=== PATIENT | male | born 1990 | race African-American/Black ===

== ENCOUNTER 2017-01-11 14:58 | Emergency (ER) | payer OTHER ==
[~2017-01-11] VITALS: Ht 175.3 cm; Wt 63.6 kg
[~2017-01-11 14:58] MED LIST: BENADRYL; NO HOME MEDICATIONS
[2017-01-11 15:01] VITALS: BP 133/84; PULSE 71; TEMP 98.1
[2017-01-11] MEDS ORDERED: FLONASEALLERGY NS (15:25)
[2017-01-11] MEDS ORDERED: CLARITIN-D 10 M1 T24 PO (15:25)
== END 2017-01-11 15:35 | disposition home or self-care (01) ==
LOC: COL.ER 14:58
DX: J06.9 Acute upper respiratory infection, unspecified (principal); F17.210 Nicotine dependence, cigarettes, uncomplicated

== ENCOUNTER 2018-09-16 11:32 | Emergency (ER) | payer OTHER ==
[~2018-09-16] VITALS: Ht 175.3 cm; Wt 63.2 kg
[~2018-09-16 11:32] MED LIST changes: +CLARITIN-D 10 M1 T24 PO; +FLONASEALLERGY NS
[2018-09-16 11:37] VITALS: TEMP 98.1
[2018-09-16 12:20] LABS: COLLECTION METHOD CLEAN CATCH
[2018-09-16 12:23] LABS: HEMATOCRIT 47.6 % (42.0-52.0); HEMOGLOBIN 15.9 g/dl (13.5-18.0); MEAN CELL VOLUME 84 fl (80.0-100.0); MEAN CORPUSCULAR HEMOGLOBIN 28 pg (27.0-31.0); MEAN CORPUSCULAR HGB CONC 33 g/dl (33.0-37.0); MEAN PLATELET VOLUME 8.9 fl (7.4-10.4); PLATELET COUNT 198 K/mm3 (130-400); RED BLOOD COUNT 5.67 M/mm3 (4.20-5.60); REDCELL DISTRIBUTION WIDTH-CV 13.2 % (11.5-14.5)
[2018-09-16 12:26] LABS: MUCOUS Present /lpf; PH 5 (5-8); SQUAMOUS EPITHELIAL 0-2 /hpf; URINE APPEARANCE Clear; URINE BACTERIA None Seen /hpf; URINE BILIRUBIN Negative (NEGATIVE); URINE BLOOD Negative (NEGATIVE); URINE COLOR Yellow; URINE GLUCOSE Negative (NEGATIVE); URINE KETONE Negative (NEGATIVE); URINE LEUKOCYTE ESTERASE Negative (NEGATIVE); URINE NITRATE Negative (NEGATIVE); URINE PROTEIN(semi-quant) Negative (NEGATIVE); URINE RBC 0-2 /hpf; URINE UROBILINOGEN Negative (NEGATIVE)
[2018-09-16 12:36] LABS: ALANINE AMINOTRANSFERASE 35 U/L (21-72); ALBUMIN 4.8 gm/dL (3.5-5.0); ALKALINE PHOSPHATASE 52 U/L (50-136); ANION GAP 4 mmol/L (7-16); AST,SGOT 26 U/L (15-37); BILIRUBIN,TOTAL 0.4 mg/dL (0.0-1.0); BLOOD UREA NITROGEN 15 mg/dL (9-20); CALCIUM 9.1 mg/dL (8.4-10.2); CARBON DIOXIDE 28 mmol/L (22-30); CHLORIDE 107 mmol/L (98-107); CREATININE, serum 0.81 mg/dL (0.66-1.25); GLUCOSE 97 mg/dL (74-106); LIPASE 29 U/L (23-300); POTASSIUM 4.6 mmol/L (3.4-5.0); SODIUM 140 mmol/L (137-145); TOTAL PROTEIN 7.7 gm/dL (6.4-8.2)
[2018-09-16 12:39] LABS: C-REACTIVE PROTEIN < 0.5 mg/dL (0.0-0.9)
[2018-09-16 13:02] LABS: BAND 2 % (0-10); EOSINOPHIL 6 % (0-4); LYMPHOCYTE 48 % (20.0-51.0); NEUTROPHILS 38 % (42.0-75.2); PLATELET ESTIMATE NORMAL (NORMAL)
[2018-09-16 15:15] VITALS: BP 120/69; PULSE 76
== END 2018-09-16 15:14 | disposition home or self-care (01) ==
LOC: COL.ER 11:32
PROVIDERS: Emergency Medicine
DX: R10.32 Left lower quadrant pain (principal)
CPT/HCPCS: J1885; J7030

== ENCOUNTER 2019-10-13 08:47 | Emergency (ER) | payer OTHER ==
[~2019-10-13] VITALS: Ht 175.3 cm; Wt 65.8 kg
[2019-10-13 08:51] VITALS: BP 132/79
[2019-10-13] MEDS ORDERED: NORCO 325 MG-7.1 TAB PO (10:29)
[2019-10-13 10:38] LABS: COLLECTION METHOD CLEAN CATCH
[2019-10-13 10:56] LABS: MUCOUS Present /lpf; PH 6 (5-8); SQUAMOUS EPITHELIAL 0-2 /hpf; URINE APPEARANCE Clear; URINE BACTERIA None Seen /hpf; URINE BILIRUBIN Negative (NEGATIVE); URINE BLOOD 1+ (NEGATIVE); URINE COLOR Yellow; URINE GLUCOSE Negative (NEGATIVE); URINE KETONE Negative (NEGATIVE); URINE LEUKOCYTE ESTERASE Trace (NEGATIVE); URINE NITRATE Negative (NEGATIVE); URINE PROTEIN(semi-quant) Negative (NEGATIVE); URINE UROBILINOGEN Negative (NEGATIVE)
[2019-10-13 11:30] VITALS: PULSE 81; TEMP 99
[2019-10-14] MEDS ORDERED: ZITHROMAX 250M250 MG PO (09:55)
[2019-10-16] MEDS ORDERED: PROAIR HFA0.09 MG/AC IH (09:51)
[2019-10-16] MEDS ORDERED: ZITHROMAX 250M250 MG PO (09:51)
[2019-10-16] MEDS ORDERED: PREDNISONE20 MG PO (09:51)
[2019-10-16] MEDS ORDERED: ZITHROMAX TRI-500 MG PO (09:55)
== END 2019-10-13 11:30 | disposition home or self-care (01) ==
LOC: COL.ER 08:47
PROVIDERS: Physician Assistant
DX: S30.94XA Unspecified superficial injury of scrotum and testes, initial encounter (principal); N50.811 Right testicular pain; F17.210 Nicotine dependence, cigarettes, uncomplicated; Z90.49 Acquired absence of other specified parts of digestive tract; W54.1XXA Struck by dog, initial encounter